=== PATIENT | female | born 1940 | race Caucasian/White ===

== ENCOUNTER 2021-10-24 14:09 | Emergency (ER) | payer MEDICARE, OTHER ==
[~2021-10-24] VITALS: Ht 162.6 cm; Wt 50.3 kg
== END 2021-10-24 17:25 | disposition home or self-care (01) ==
LOC: ER1 14:09
DX: U07.1 COVID-19 (principal); Z23 Encounter for immunization; Z90.710 Acquired absence of both cervix and uterus; Z90.49 Acquired absence of other specified parts of digestive tract
CPT/HCPCS: 99283; M0245

== ENCOUNTER → 2022-02-12 | Outpatient (CLI) | payer MEDICARE | LOC: MAMO 02-07 08:30 | DX: Z12.31 Encounter for screening mammogram for malignant neoplasm of breast (principal); N64.89 Other specified disorders of breast | CPT/HCPCS: 77063; 77067 ==

== ENCOUNTER 2022-06-11 10:42 | Emergency (ER) | payer MEDICARE ==
[2022-06-11 11:37] LABS: HEMOGLOBIN 15.2 gm/dl (12.3-15.3); RED BLOOD COUNT 4.77 M/UL (4.00-5.10); WHITE BLOOD COUNT 15.2 K/UL (4.5-11.0)
[2022-06-11 11:49] LABS: BUN/CREATININE RATIO 22 (0-10)
[2022-06-11] MEDS ORDERED: ZOFRAN ODT 4 MG4 MG SL (12:58)
[2022-06-11] MEDS ORDERED: AMOX TR-K CLV1 EAC4 PO (12:58)
== END 2022-06-11 13:07 | disposition home or self-care (01) ==
LOC: ER1 10:42
PROVIDERS: Physician Assistant
DX: K52.9 Noninfective gastroenteritis and colitis, unspecified (principal); Z86.16 Personal history of COVID-19; Z90.710 Acquired absence of both cervix and uterus; Z88.2 Allergy status to sulfonamides
CPT/HCPCS: 80053; 81001; 82550; 82553; 83690; 84484; 85025; 93005; 96374; 96375; 99284; J1885; J2405